=== PATIENT | female | born 1990 | race Two or more races ===

== ENCOUNTER 2024-06-12 11:20 | Outpatient (CLI) | payer OTHER ==
[2024-06-12 12:17] LABS: HEMATOCRIT 39.3 % (36.0-45.00); HEMOGLOBIN 12.9 g/dL (12.0-15.00); MEAN CELL VOLUME 83.5 fL (80.00-100.00); MEAN CORPUSCULAR HEMOGLOBIN 27.5 pg (27.00-32.0); MEAN CORPUSCULAR HGB CONC 32.9 g/dl (32.0-36.0); PLATELET COUNT 402 K/uL (150-450); RED CELL DISTRIBUTION WIDTH 12.6 % (11.5-14.5)
[2024-06-12 12:59] LABS: URINE APPEARANCE Clear; URINE BILIRRUBIN Negative (NEGATIVE); URINE BLOOD NHT; URINE COLOR Yellow; URINE GLUCOSE Negative (NEGATIVE); URINE KETONE Negative (NEGATIVE); URINE LEUKOCYTE Small; URINE NITRATE Negative; URINE PROTEIN 30 (NEGATIVE); URINE UROBILINOGEN 0.2 E.U./dl
[2024-06-12 13:00] LABS: URINE BACTERIA 389.2 uL (0.0-1933); URINE EPITHELIAL CELLS 23.4 uL (0.0-38.8); URINE RBC 8.5 uL (0.0-20.8); URINE WBC 67.8 uL (0.0-23.2)
[2024-06-12 13:02] LABS: ALBUMIN 4.6 gm/dL (3.4-5.0); BILIRUBIN TOTAL 0.73 mg/dL (0.3-1.2); CALCIUM 9.6 mg/dL (8.5-10.1); CREATININE SERUM 0.67 mg/dL (0.55-1.02); GLOBULINA 3.7 G/DL (2.4-3.5); POTASSIUM 3.77 mEq/L (3.5-5.1); TOTAL PROTEIN 8.3 gm/dL (6.4-8.2)
[2024-06-12 13:21] LABS: URINE CAST 0.45 uL (0.0-1.40)
[2024-06-12 14:01] LABS: INR 1.03; PARTIAL THROMBOPLASTIN TIME 25.7 SECONDS (22.0-34.0); PROTHROMBIN TIME 11.2 SECONDS (9.0-11.5)
== END 2024-06-12 11:21 | disposition home or self-care (01) ==
LOC: RAD 11:20
PROVIDERS: ATTEND Orthopaedic Surgery
DX: D64.9 Anemia, unspecified (principal); E88.89 Other specified metabolic disorders; D68.8 Other specified coagulation defects; N39.0 Urinary tract infection, site not specified; Z22.322 Carrier or suspected carrier of Methicillin resistant Staphylococcus aureus; E11.9 Type 2 diabetes mellitus without complications; I10 Essential (primary) hypertension; Z76.89 Persons encountering health services in other specified circumstances

== ENCOUNTER 2024-06-12 12:57 | Outpatient (CLI) | payer OTHER | END 2024-06-12 13:08 | disposition home or self-care (01) | LOC: TOM 12:57 | PROVIDERS: ATTEND Orthopaedic Surgery | DX: S82.871A Displaced pilon fracture of right tibia, initial encounter for closed fracture (principal) ==

== ENCOUNTER 2024-06-19 05:25 | Day surgery (SDC) | payer OTHER ==
[2024-06-14 15:18] VITALS: BP 112/77
[~2024-06-19] VITALS: Ht 160 cm; Wt 77.1 kg
[2024-06-19] MEDS ORDERED: CEFOXITIN SODIUM 2,000 MG VIAL IV ONE (09:45)
[2024-06-19] MEDS ORDERED: ISOPROPYL ALCOHOL 30 ML OUNCE TOP ONE (09:45)
[2024-06-19] MEDS ORDERED: BUPIVACAINE HCL 30 ML VIAL IJ ONE (12:45)
== END 2024-06-19 15:40 | disposition home or self-care (01) ==
LOC: CIR.AMB 05:25
PROVIDERS: ATTEND Orthopaedic Surgery
DX: S82.871A Displaced pilon fracture of right tibia, initial encounter for closed fracture (principal); S82.451A Displaced comminuted fracture of shaft of right fibula, initial encounter for closed fracture; S92.191A Other fracture of right talus, initial encounter for closed fracture; Z88.8 Allergy status to other drugs, medicaments and biological substances
CPT/HCPCS: 27828; 20902; 27695; 28445; L8699

== ENCOUNTER 2024-06-21 12:47 | Outpatient (CLI) | payer OTHER | END 2024-06-21 12:53 | disposition home or self-care (01) | LOC: LAB 12:47 | PROVIDERS: ATTEND Orthopaedic Surgery | DX: E55.9 Vitamin D deficiency, unspecified (principal); M85.9 Disorder of bone density and structure, unspecified ==

== ENCOUNTER 2024-07-07 10:35 | Outpatient (CLI) | payer OTHER | END 2024-07-07 10:47 | disposition home or self-care (01) | LOC: RAD 10:35 | PROVIDERS: ATTEND Orthopaedic Surgery | DX: S93.431D Sprain of tibiofibular ligament of right ankle, subsequent encounter (principal) ==

== ENCOUNTER 2024-07-27 12:14 | Outpatient (CLI) | payer OTHER | END 2024-07-27 12:26 | disposition home or self-care (01) | LOC: RAD 12:14 | PROVIDERS: ATTEND Orthopaedic Surgery | DX: S93.431D Sprain of tibiofibular ligament of right ankle, subsequent encounter (principal) ==

== ENCOUNTER 2024-09-21 12:23 | Outpatient (CLI) | payer OTHER | END 2024-09-21 12:30 | disposition home or self-care (01) | LOC: RAD 12:23 | PROVIDERS: ATTEND Orthopaedic Surgery | DX: S93.431D Sprain of tibiofibular ligament of right ankle, subsequent encounter (principal) ==

== ENCOUNTER 2024-10-23 11:41 | Outpatient (CLI) | payer OTHER | END 2024-10-23 11:42 | disposition home or self-care (01) | LOC: LAB 11:41 | PROVIDERS: ATTEND Orthopaedic Surgery | DX: E55.9 Vitamin D deficiency, unspecified (principal); M85.9 Disorder of bone density and structure, unspecified; E56.1 Deficiency of vitamin K ==

== ENCOUNTER 2024-10-23 12:15 | Outpatient (CLI) | payer OTHER | END 2024-10-23 12:23 | disposition home or self-care (01) | LOC: RAD 12:15 | PROVIDERS: ATTEND Orthopaedic Surgery | DX: S93.431D Sprain of tibiofibular ligament of right ankle, subsequent encounter (principal) ==

== ENCOUNTER 2025-01-29 08:25 | Outpatient (CLI) | payer OTHER | END 2025-01-29 08:29 | disposition home or self-care (01) | LOC: NUCLEAR 08:25 | PROVIDERS: ATTEND Orthopaedic Surgery | DX: M81.0 Age-related osteoporosis without current pathological fracture (principal) ==